=== PATIENT | female | born 1945 | race Caucasian/White ===

== ENCOUNTER 2016-12-17 09:23 | Day surgery (SDC) | payer MEDICARE, OTHER, MEDICAID ==
[~2016-12-17 09:23] MED LIST: ADVAIR 50028 BLISTE1 PO; BACTRIM DS1 TAB PO; BUSPAR15 MG; BYSTOLIC5 M1 PO; CALCIUM 600 +1 EA12 PO; COUMADIN7.5 MG PO; CYMBALTA60 MG; DELTASONE20 MG PO; LAMICTAL100 M2 PO; LASIX40 M1 PO; LIPITOR10 M1 PO; LORTAB 7.5/5001 TAB; LOTRISONE CREAM15 GM TP; MULTIVITAMIN1 CAP PO; OXYCODONE/APAP; POTASSIUM CHLO10 ME2 PO; PROAIR RESPICL90 MCG INH; RISPERDAL0.5 M2 PO; RISPERIDONE0.5 M1 PO; SERTRALINE HCL100 M5 PO; SINGULAIR10 M1 PO; SPIRIVA18 MCG; TRAMADOL HCL50 MG; VIBRAMYCIN100 M1 PO; XOPENEX HFA15 GM
[2016-12-17 10:27] LABS: BASO % 0.3 % (0-2); EOSINOPHIL ABSOLUTE COUNT 0.1 tho/cmm (0.0-0.7); HCT-HEMATOCRIT 42.9 % (34.0-49.0); HGB-HEMOGLOBIN 13.8 gm/dl (12.0-15.5); IMMATURE GRANULOCYTES ABSOLUTE 0.21 tho/cmm (0-0.03); IMMATURE GRANULOCYTES PERCENT 2.7 % (0-0.3); LYMPH % 16.3 % (20-45); LYMPH ABSOLUTE COUNT 1.3 tho/cmm (0.8-4.5); MCH (MEAN CORPUSCULAR HGB) 27.3 pg (28.0-32.0); MCHC MEAN CORPUSCULAR HGB CONC 32.2 % (32.0-36.0); MEAN PLATELET VOLUME 10.1 cmc (9.4-12.4); MONO % 10.1 % (0-12); MONOCYTE ABSOLUTE COUNT 0.8 tho/cmm (0.0-1.2); NEUTROPHIL ABSOLUTE COUNT 5.4 tho/cmm (1.6-8.0); NEUTROPHIL-AUTOMATED 5.4 tho/cmm (1.6-8.0); NEUTROPHILS % 69.6 % (40-80); PLATELET COUNT 289 tho/cmm (150-450); RED BLOOD COUNT 5.05 mil/cmm (4.00-5.20); WHITE BLOOD COUNT 7.8 tho/cmm (4.0-10.0)
[2016-12-17 10:29] LABS: INR 1.1 INR (0.9-1.1); PROTHROMBIN TIME 12.3 SECONDS (9.0-13.6)
[2016-12-17 10:36] LABS: ANION GAP 8 mmol/L (0-20); BLOOD UREA NITROGEN 17 mg/dl (6-24); CARBON DIOXIDE-VENOUS 33 mmol/L (22-32); CHLORIDE 106 mmol/l (96-110); CREATININE 0.92 mg/dl (0.50-1.10); GLUCOSE 128 mg/dL (70-110); POTASSIUM 4.3 mmol/L (3.7-5.1); SODIUM 143 mmol/L (135-145); eGFR VALUE FOR BLACK 73 mL/Min
[2016-12-18 06:38] LABS: BASO % 0.2 % (0-2); EOS % 1.5 % (0-7); EOSINOPHIL ABSOLUTE COUNT 0.1 tho/cmm (0.0-0.7); HCT-HEMATOCRIT 40.4 % (34.0-49.0); HGB-HEMOGLOBIN 12.7 gm/dl (12.0-15.5); IMMATURE GRANULOCYTES ABSOLUTE 0.13 tho/cmm (0-0.03); IMMATURE GRANULOCYTES PERCENT 1.6 % (0-0.3); LYMPH % 21.5 % (20-45); LYMPH ABSOLUTE COUNT 1.8 tho/cmm (0.8-4.5); MCH (MEAN CORPUSCULAR HGB) 26.9 pg (28.0-32.0); MCHC MEAN CORPUSCULAR HGB CONC 31.4 % (32.0-36.0); MCV (MEAN CELL VOLUME) 85.6 fl (82.0-96.0); MEAN PLATELET VOLUME 9.8 cmc (9.4-12.4); MONO % 10.3 % (0-12); MONOCYTE ABSOLUTE COUNT 0.8 tho/cmm (0.0-1.2); NEUTROPHIL ABSOLUTE COUNT 5.3 tho/cmm (1.6-8.0); NEUTROPHIL-AUTOMATED 5.3 tho/cmm (1.6-8.0); NEUTROPHILS % 64.9 % (40-80); PLATELET COUNT 227 tho/cmm (150-450); RED BLOOD COUNT 4.72 mil/cmm (4.00-5.20); RED CELL DISTRIBUTION WIDTH 14.2 % (12.4-16.4); WHITE BLOOD COUNT 8.1 tho/cmm (4.0-10.0)
[2016-12-18 06:49] LABS: ANION GAP 10 mmol/L (0-20); BLOOD UREA NITROGEN 18 mg/dl (6-24); CALCIUM 8.7 mg/dl (8.5-10.5); CARBON DIOXIDE-VENOUS 32 mmol/L (22-32); CHLORIDE 104 mmol/l (96-110); CREATININE 1.05 mg/dl (0.50-1.10); GLUCOSE 119 mg/dL (70-110); POTASSIUM 4.2 mmol/L (3.7-5.1); SODIUM 142 mmol/L (135-145); eGFR VALUE FOR BLACK 62 mL/Min
--- NOTE | 2016-12-18 20:46 | NUR ---
VIRTUAL CARE NOTE: PT. UP IN THE CHAIR WITH 2L OF O2 ON. STATES IS SORE AND JUST TOOK SOME PAIN MEDICATION. EDUCATION REVIEWED REGARDING NOT GETTING UP OUT OF THE CHAIR OF THE BED WITHOUT THE STAFF ASSISTANCE AND TO CALL FOR HELP, STATES VERBAL UNDERSTANDING.
[2016-12-19] MEDS ORDERED: NORCO 5-325 TA1 EACH PO (13:11)
[2016-12-19] MEDS ORDERED: COLACE100 M1 PO (13:23)
[2016-12-19] MEDS ORDERED: PEPCID20 M1 PO (13:23)
== END 2016-12-19 14:55 | disposition home health service (06) ==
LOC: SRG 09:23 → SHSB 09:31 → ORW 11:42 → SHSB 12:40 → 5WD 14:10
PROVIDERS: Surgery Vascular Surgery
PROC: 0Y6T0Z0 Detachment at Right 3rd Toe, Complete, Open Approach (ICD-10-PCS; principal; 2016-12-17)
DX: M86.9 Osteomyelitis, unspecified (principal); I12.9 Hypertensive chronic kidney disease with stage 1 through stage 4 chronic kidney disease, or unspecified chronic kidney disease; N18.3 Chronic kidney disease, stage 3 (moderate); E66.01 Morbid (severe) obesity due to excess calories; E78.5 Hyperlipidemia, unspecified; M19.90 Unspecified osteoarthritis, unspecified site; F41.9 Anxiety disorder, unspecified; F32.9 Major depressive disorder, single episode, unspecified; J45.909 Unspecified asthma, uncomplicated; J44.9 Chronic obstructive pulmonary disease, unspecified; G47.33 Obstructive sleep apnea (adult) (pediatric); K21.9 Gastro-esophageal reflux disease without esophagitis; H91.90 Unspecified hearing loss, unspecified ear; Z79.51 Long term (current) use of inhaled steroids; Z79.899 Other long term (current) drug therapy; Z88.2 Allergy status to sulfonamides; Z91.040 Latex allergy status; Z87.891 Personal history of nicotine dependence; Z90.710 Acquired absence of both cervix and uterus; Z98.890 Other specified postprocedural states
CPT/HCPCS: G8978-GP-CJ; G8979-GP-CJ; G8980-GP-CJ; J0690; J2250